=== PATIENT | female | born 1960 | race Caucasian/White ===

== ENCOUNTER → 2017-07-26 18:36 | Outpatient (CLI) | payer OTHER, SELFPAY | PROVIDERS: Visit Provider Physician Assistant | DX: J02.9 Acute pharyngitis, unspecified (principal) | CPT/HCPCS: 87081 ==

== ENCOUNTER → 2017-09-01 10:14 | Outpatient (CLI) | payer OTHER, SELFPAY ==
[2017-09-01 10:46] LABS: Absolute Neutrophil Count 3.8 X10^3/uL (2.0-7.7); Basophil# 0.07 X10^3/uL; Basophil% 1.3 % (0-1); Eosinophils% 1.8 % (0-5); Hematocrit 43.4 % (37-47); Hemoglobin 14.1 g/dl (12.0-15.0); Lymphocyte % 20.3 % (19-41); Mean Corp Hgb Conc 32.5 g/gl (32-36); Mean Corpuscular Hgb 30.2 pg (27.0-32.0); Mean Corpuscular Volume 92.9 fL (81-99); Mean Platelet Vol. 9.4 fl (6.2-12.0); Monocyte# 0.33 X10^3/uL; Monocyte% 6.1 % (0-10); Neutrophil # 3.79 X10^3/uL (2.7-7.7); Neutrophil % 70.1 % (47-70); Platelet Count 242 K/mm3 (150-450); RBC Distribution Width CV 13.7 % (11.6-14.6); RBC Distribution Width SD 45.3 fl (35.1-43.9); Red Blood Count 4.67 M/mm3 (4.2-5.4); White Blood Count 5.4 K/mm3 (4.4-11.0)
[2017-09-01 10:48] LABS: POSITIVE COUNT NO; POSITIVE DIFFERENTIAL NO; POSITIVE MORPHOLOGY NO
[2017-09-01 11:29] LABS: ALB/GLOB Ratio 1.1 RATIO (0.9-2.4); AST(SGOT) 17 U/L (15-37); Alanine Aminotransfer ALT/SGPT 26 U/L (13-56); Albumin, Serum 3.6 g/dL (3.2-5.0); Alkaline Phosphatase 79 U/L (45-117); Anion Gap 8 (5-15); BUN 13 mg/dL (7-18); BUN/Creat Ratio 17.8 RATIO (10-20); Calcium,Total 8.9 mg/dL (8.5-10.1); Chloride 104 mmol/L (98-107); Creatinine, Serum 0.73 mg/dL (0.55-1.02); EST Glomerular Filtration Rate 87 mL/min (>60); Est Glom Filt Rate - Afr Amer 105 mL/min (>60); Globulin 3.3 g/dL (2.2-4.2); Glucose 80 mg/dL (74-106); Protein, Total 6.9 g/dL (6.4-8.2); Sodium Level 142 mmol/L (136-145); Thyroid Stim Hormone (TSH) 3.36 uIU/mL (0.358-3.74)
== END ==
PROVIDERS: Visit Provider Family Medicine Geriatric Medicine
DX: E03.9 Hypothyroidism, unspecified (principal); R53.83 Other fatigue
CPT/HCPCS: 36415; 80053; 84443; 85025

== ENCOUNTER → 2019-03-14 | Outpatient (CLI) | payer OTHER, SELFPAY ==
[2017-07-26 06:57] VITALS: BMI 35.2
[2019-03-14 17:36] LABS: Absolute Lymphocyte Count 1.39 X10^3/uL (0.83-4.51); Absolute Neutrophil Count 3.4 X10^3/uL (2.0-7.7); Basophil# 0.09 X10^3/uL; Basophil% 1.7 % (0-1); Eosinophils% 1.9 % (0-5); Hematocrit 44.9 % (37-47); Hemoglobin 14.4 g/dL (12.0-15.0); Lymphocyte # 1.39 X10^3/ul (4.0); Mean Corp Hgb Conc 32.1 g/dL (32-36); Mean Corpuscular Hgb 29.3 pg (27.0-32.0); Mean Corpuscular Volume 91.3 fL (81-99); Mean Platelet Vol. 10.1 fl (6.2-12.0); Monocyte# 0.37 X10^3/uL; Monocyte% 6.9 % (0-10); NRBC Flagged by Analyzer 0 % (0-5); Neutrophil # 3.38 X10^3/uL (2.7-7.7); Neutrophil % 63.1 % (47-70); Platelet Count 211 K/mm3 (150-450); RBC Distribution Width CV 13.1 % (11.6-14.6); Red Blood Count 4.92 M/mm3 (4.2-5.4); White Blood Count 5.4 K/mm3 (4.4-11.0)
[2019-03-14 17:56] LABS: ALB/GLOB Ratio 1.2 RATIO (0.9-2.4); AST(SGOT) 33 U/L (15-37); Alanine Aminotransfer ALT/SGPT 58 U/L (13-56); Albumin, Serum 3.9 g/dL (3.2-5.0); Alkaline Phosphatase 71 U/L (45-117); Anion Gap 6 (5-15); BUN 18 mg/dL (7-18); BUN/Creat Ratio 25.2 RATIO (10-20); Calcium,Total 9.6 mg/dL (8.5-10.1); Chloride 106 mmol/L (98-107); Creatinine, Serum 0.71 mg/dL (0.55-1.02); EST Glomerular Filtration Rate 89 mL/min (>60); Est Glom Filt Rate - Afr Amer 107 mL/min (>60); Globulin 3.2 g/dL (2.2-4.2); Glucose 87 mg/dL (74-106); Potassium 3.9 mmol/L (3.5-5.1); Protein, Total 7.1 g/dL (6.4-8.2); Sodium Level 143 mmol/L (136-145); Thyroid Stim Hormone (TSH) 3.52 uIU/mL (0.358-3.74); Vitamin D,25 Hydroxy 24.4 ng/mL (29.95-100.01)
== END | disposition home or self-care (01) ==
LOC: POLAB3 11:18
PROVIDERS: Visit Provider Family Medicine Geriatric Medicine
DX: E55.9 Vitamin D deficiency, unspecified (principal); R53.83 Other fatigue
CPT/HCPCS: 36415; 80053; 82306; 84443; 85025

== ENCOUNTER → 2020-10-20 14:48 | Outpatient (CLI) | payer OTHER, SELFPAY ==
[2017-07-26 06:57] VITALS: BMI 35.2
[2020-10-20 15:22] LABS: Absolute Lymphocyte Count 1.18 X10^3/uL (0.83-4.51); Absolute Neutrophil Count 3.6 X10^3/uL (2.0-7.7); Basophil# 0.07 X10^3/uL; Basophil% 1.3 % (0-1); Eosinophil# 0.16 X10^3/uL; Hematocrit 46.2 % (37-47); Hemoglobin 14.1 g/dL (12.0-15.0); Lymphocyte # 1.18 X10^3/ul (0.83-4.51); Lymphocyte % 22.1 % (19-41); Mean Corp Hgb Conc 30.5 g/dL (32-36); Mean Corpuscular Volume 91.8 fL (81-99); Mean Platelet Vol. 9.9 fl (6.2-12.0); Monocyte# 0.35 X10^3/uL; Monocyte% 6.6 % (0-10); NRBC Flagged by Analyzer 0 % (0-5); Neutrophil # 3.57 X10^3/uL (2.7-7.7); Neutrophil % 66.8 % (47-70); Platelet Count 234 K/mm3 (150-450); RBC Distribution Width CV 13.5 % (11.6-14.6); RBC Distribution Width SD 45.5 fl (35.1-43.9); Red Blood Count 5.03 M/mm3 (4.2-5.4); White Blood Count 5.3 K/mm3 (4.4-11.0)
[2020-10-20 15:44] LABS: Vitamin D,25 Hydroxy 15.4 ng/mL
[2020-10-20 15:50] LABS: ALB/GLOB Ratio 1.2 RATIO (0.9-2.4); AST(SGOT) 20 U/L (15-37); Alanine Aminotransfer ALT/SGPT 38 U/L (13-56); Albumin, Serum 3.9 g/dL (3.2-5.0); Alkaline Phosphatase 71 U/L (45-117); Anion Gap 2 (5-15); BUN 13 mg/dL (7-18); BUN/Creat Ratio 17.8 RATIO (10-20); Calcium,Total 9.4 mg/dL (8.5-10.1); Chloride 108 mmol/L (98-107); Creatinine, Serum 0.73 mg/dL (0.55-1.02); EST Glomerular Filtration Rate 86 mL/min (>60); Est Glom Filt Rate - Afr Amer 104 mL/min (>60); Globulin 3.3 g/dL (2.2-4.2); Glucose 83 mg/dL (74-106); Potassium 3.8 mmol/L (3.5-5.1); Protein, Total 7.2 g/dL (6.4-8.2); Sodium Level 142 mmol/L (136-145); Thyroid Stim Hormone (TSH) 5.26 uIU/mL (0.358-3.74)
== END ==
PROVIDERS: Visit Provider Family Medicine Geriatric Medicine
DX: E55.9 Vitamin D deficiency, unspecified (principal); R53.83 Other fatigue
CPT/HCPCS: 36415; 80053; 82306; 84443; 85025

== ENCOUNTER → 2020-10-26 08:14 | Outpatient (CLI) | payer OTHER, SELFPAY ==
[2017-07-26 06:57] VITALS: BMI 35.2
--- NOTE | 2020-10-26 08:19 | US_ITS ---
STUDY: ABDOMINAL ULTRASOUND - RIGHT UPPER QUADRANT REASON FOR VISIT: Female, 60 years old ABD PAIN . Right upper quadrant pain. TECHNIQUE: Ultrasound evaluation of the right upper quadrant was performed with real-time and static chaudhry-scale imaging. TECHNICAL QUALITY: Adequate. COMPARISON: None. FINDINGS: Liver: The liver measures 14.3 cm. There is normal echogenicity of the liver. The bile ducts are within normal limits. There is hepatic color flow. The direction of portal flow is hepatopetal. There is no demonstrated mass lesion. Gallbladder: Normal distended gallbladder. The gallbladder wall measures 3 mm. There is a negative sonographic Krause''s sign. There is no pericholecystic fluid. There are multiple echogenic structures within the gallbladder, consistent with multiple small gallstones. Common Bile Duct (C.B.D.): The common bile duct measures 5 mm. Pancreas: Normal size of the head, body and tail of the pancreas. There is normal echogenicity of the pancreas. There is no demonstrated pancreatic mass or cyst. Right Kidney: Normal size of the right kidney. The right kidney measures 10.3 cm x 5.1 cm x 4.7 cm. Normal renal cortex. The right cortex measures cm. There is no demonstrated renal mass or cyst. There is no right hydronephrosis. US/Abdomen Limited IMPRESSION: Multiple small gallstones. Electronically Signed: Luis Sands MD at 11:05 EDT , Service support ,
== END ==
PROVIDERS: PCP Family Medicine Geriatric Medicine; Referring Provider Family Medicine Geriatric Medicine; Visit Provider Family Medicine Geriatric Medicine
DX: R10.9 Unspecified abdominal pain (principal)
CPT/HCPCS: 76705

== ENCOUNTER → 2020-11-13 12:41 | Outpatient (CLI) | payer OTHER, SELFPAY ==
[2017-07-26 06:57] VITALS: BMI 35.2
--- NOTE | 2020-11-13 12:42 | BI_ITS ---
MAMMOGRAPHY - BILATERAL SCREENING 3-D TOMOSYNTHESIS REASON FOR EXAM: Female, 60 years old. Routine screening PERTINENT HISTORY: Aunt and cousins with breast cancer.. TECHNIQUE: 2-D mammograms and 3-D Tomosynthesis of the breast (s) were performed. CAD was performed. COMPARISON: 2019 FINDINGS: The breast composition is composed of scattered fibroglandular density. Scattered benign calcifications are seen. No dense spiculated masses or suspicious microcalcifications are identified. No architectural distortion is identified. There is no skin thickening or retraction. There has been no significant change since the prior study. BI/SCRN MAMM (CAD)W/PAULETTE BILAT IMPRESSION: No mammographic signs of malignancy. Routine yearly mammograms recommended. ASSESSMENT CATEGORY: BIRADS Category 1: Negative. A letter regarding these results will be sent to the patient by the facility within 30 days. FOLLOW UP RECOMMENDATION: Yearly follow up mammogram recommended. (A) Approximately 10% of breast cancers are not detected by mammography. A normal mammogram should not delay biopsy of a clinically suspicious abnormality. Electronically Signed: Chemo Tavera MD at 13:29 EDT , Service support ,
== END ==
PROVIDERS: PCP Family Medicine Geriatric Medicine; Referring Provider Family Medicine Geriatric Medicine; Visit Provider Family Medicine Geriatric Medicine
DX: Z12.31 Encounter for screening mammogram for malignant neoplasm of breast (principal)
CPT/HCPCS: 77063; 77067

== ENCOUNTER → 2020-12-09 11:10 | Outpatient (CLI) | payer OTHER, SELFPAY ==
[2017-07-26 06:57] VITALS: BMI 35.2
== END ==
PROVIDERS: PCP Family Medicine Geriatric Medicine; Visit Provider Family Medicine Geriatric Medicine
DX: E03.9 Hypothyroidism, unspecified (principal)
CPT/HCPCS: 36415; 84443

== ENCOUNTER → 2021-03-17 10:19 | Outpatient (CLI) | payer OTHER, SELFPAY ==
[2021-03-17 12:24] LABS: Cholesterol 246 mg/dL (200); High Density Lipoprotein 67 mg/dL; Triglycerides 111 mg/dL; Very Low Density Lipoprotein 22 mg/dL (5-40)
== END ==
PROVIDERS: PCP Internal Medicine; Referring Provider Internal Medicine; Visit Provider Internal Medicine
DX: E03.9 Hypothyroidism, unspecified (principal)
CPT/HCPCS: 36415; 80061

== ENCOUNTER → 2021-04-27 10:51 | Outpatient (CLI) | payer OTHER, SELFPAY ==
--- NOTE | 2021-04-27 10:58 | BD_ITS ---
STUDY: DUAL ENERGY X-RAY ABSORPTIOMETRY / DXA REASON FOR EXAM: Female, 61 years old. Post menopausal TECHNIQUE: Bone Mineral Density (BMD) measurements of lumbar spine and bilateral hips were obtained. COMPARISON: None. FINDINGS: Lumbar Spine (L1-L4): g/cm2 (0.803) / T-score (-2.2) / Z-score (-0.7) Findings are suggestive of osteopenia with a high fracture risk. Left Femur Total: g/cm2 (0.900) / T-score (-0.3) / Z-score (0.7) Left Femoral Neck: g/cm2 (0.687) / T-score (-1.5) / Z-score (-0.1) Right Femur Total: g/cm2 (0.868) / T-score (-0.6) / Z-score (0.5) Right Femoral Neck: g/cm2 (0.675) / T-score (-1.6) / Z-score (-0.2) BD/Dexa Bone Density Study IMPRESSION: The patient is considered osteopenic as outlined below according to World Felipe Organization (WHO) criteria with a high fracture risk. Reference Information: The T-score is the number of standard deviations above or below the standard which is normal for young adults at their peak bone mineral density. The World Health Organization (WHO) interprets the T-scores as follows: Above -1 Normal bone density Between -1 and -2.5 Osteopenia Equal to / or below -2.5 Osteoporosis As a practical clinical guideline, osteopenia may be graded as follows: Mild -1 through -1.5 Moderate -1.6 through -2.0 Severe -2.1 through -2.4 The Z-score is the number of standard deviations above or below age-matched controls. A Z-score of less than -1.5 would be considered abnormal. References: 1. NIH Osteoporosis and Related Bone Diseases www osteo.org 2. International Society for Clinical Densitometry www iscd.org 3. National Osteoporosis Foundation www nof.org Electronically Signed: Luis Sands MD at 15:45 EDT , Service support ,
== END ==
PROVIDERS: PCP Internal Medicine; Referring Provider Internal Medicine; Visit Provider Internal Medicine
DX: Z78.0 Asymptomatic menopausal state (principal)
CPT/HCPCS: 77080

== ENCOUNTER → 2021-05-27 15:40 | Outpatient (CLI) | payer OTHER, SELFPAY ==
[2021-05-27 17:15] LABS: Anion Gap 6 (5-15); BUN 15 mg/dL (7-18); BUN/Creat Ratio 19.7 RATIO (10-20); Calcium,Total 9.6 mg/dL (8.5-10.1); Chloride 106 mmol/L (98-107); Creatinine, Serum 0.76 mg/dL (0.55-1.02); EST Glomerular Filtration Rate 82 mL/min (>60); Est Glom Filt Rate - Afr Amer 99 mL/min (>60); Glucose 91 mg/dL (74-106); Potassium 4.5 mmol/L (3.5-5.1); Sodium Level 141 mmol/L (136-145); Thyroid Stim Hormone (TSH) 2.79 uIU/mL (0.358-3.74)
== END ==
PROVIDERS: PCP Internal Medicine; Referring Provider Internal Medicine; Visit Provider Internal Medicine
DX: E03.9 Hypothyroidism, unspecified (principal); E55.9 Vitamin D deficiency, unspecified
CPT/HCPCS: 36415; 80048; 82306; 84443

== ENCOUNTER 2021-12-27 07:50 | Emergency (ER) | payer OTHER, SELFPAY ==
[2021-12-27 07:51] VITALS: BP 152/92; PULSE 80; RESP 16; TEMP 36.6; O2SAT 99; BMI 34.9
--- NOTE | 2021-12-27 07:56 | EX.ED.UPPERE ---
HPI History of Present Illness Chief Complaint: Disclocation Narrative Narrative: 61-year-old female presenting with left ring finger pain. She states she tripped while watering [place] and dislocated her left ring finger. She was able to relocate it. She took off her ring finger. She states it is minimally painful. She has some swelling over the PIP of the finger. She is able to range the finger. No numbness or tingling. She is concerned she might have a finger fracture. PFSH PFSH Medical History Arthritis Bright disease Kali-Danlos syndrome, familial joint laxity type Health care maintenance History of migraine headaches Hypothyroidism Migraine Osteoarthritis Osteopenia with high risk of fracture Post-menopausal Vitamin D deficiency Home Medications sumatriptan succinate 25 mg tablet 50 mg PO ONCE PRN Migraine Headache 03/17/21 [History Last Taken Unknown] alendronate 35 mg tablet 35 mg PO QWEEK #14 tabs 05/27/21 [Rx Last Taken Unknown] levothyroxine 25 mcg tablet 25 mcg PO DAILY #90 tabs 10/25/21 [Rx Last Taken Unknown] Allergy/AdvReac Type Severity Reaction Status Date / Time acetaminophen [From Fioricet] Allergy Unknown Verified 12/27/21 07:54 butalbital [From Fioricet] Allergy Unknown Verified 12/27/21 07:54 caffeine [From Fioricet] Allergy Unknown Verified 12/27/21 07:54 Sulfa (Sulfonamide Allergy Unknown Verified 12/27/21 07:54 Antibiotics) Family History Uncle Alcoholism Parkinson disease Alzheimer disease Grandmother Angina pectoris Diabetes Myocardial infarction Alzheimer disease Father Asthma Arthritis Skin cancer Mother Arthritis Thyroid disorder Kali-Danlos syndrome Aunt Breast cancer Sister Kali-Danlos syndrome Other Bladder cancer Colon cancer Heart disease Hypertension Ovarian cancer Surgical History History of tonsillectomy Hx of hysterectomy Social History Smoking Status: Never smoker alcohol intake: never substance use type: does not use what type of physical activity do you participate in: walking frequency: 3-4 times per week ROS ROS ED Constitutional Constitutional ED: Denies chills or fever(s) Eyes Eyes: Denies change in vision or diplopia ENT ENT ED: Denies rhinorrhea or sore throat Cardiovascular Cardiovascular: Denies chest pain or palpitations Respiratory/Chest Respiratory/Chest: Denies cough or dyspnea Gastrointestinal Gastrointestinal: Denies abdominal pain or constipation Genitourinary Genitourinary ED: Denies dysuria or hematuria Musculoskeletal Musculoskeletal: Reports other Details: Left ring finger pain ; Denies back pain Integumentary Denies abscess or Abrasions Neurologic Neurologic: Denies headache(s) Psychiatric Psychiatric: Denies anxiety or depression EXAM Physical Exam Const Vital Signs: 12/27/21 07:51 Temperature 97.9 F Temperature Source Temporal Pulse Rate 80 Respiratory Rate 16 Blood Pressure 152/92 H Blood Pressure Mean 112 Pulse Ox 99 Oxygen Delivery Method Room Air Positive well nourished General Appearance ED: NAD HEENT Reports moist mucous membranes Eyes PERRL and EOMs intact bilaterally Resp normal respiratory effort Cardio regular rate and regular rhythm Extremity Extremity Narrative: There is swelling over the PIP of the left ring finger. Patient able to flex and extend this. She has minimal pain. No other pain throughout the left hand. Left hand neurovascular intact with cap refill to all 5 fingers. Neuro oriented x3 and CN's II-XII intact bilaterally Sensorium / Orientation: alert Psych mental status grossly normal MDM MDM MDM Narrative Medical decision making narrative: I obtained a hand x-ray of the left hand and there appears to be no fracture on my interpretation. There is soft tissue swelling around the PIP where the patient previous dislocated. The radiologist does agree. Patient placed in AlumaFoam splint for comfort. She does not require anything for pain because she states is minimally painful. Patient discharged home in stable condition. Impression: 1. Mechanical fall 2. Left ring finger dislocation Lab Data Attestation: I reviewed the patient's lab results. Discharge Plan Triage Chief Complaint: Disclocation ED Provider: Piotr Cruz Dx/Rx/DC Orders Instructions: ED Finger Dislocation Prescriptions: No Action sumatriptan succinate 25 mg tablet 50 mg PO ONCE PRN (Reason: Migraine Headache) alendronate 35 mg tablet 35 mg PO QWEEK Qty: 14 1RF levothyroxine 25 mcg tablet 25 mcg PO DAILY Qty: 90 1RF Primary Care Provider: Hayder Villalta Referrals: Hayder Villalta MD [Primary Care Provider] - Disposition Disposition: Home, Self Care
--- NOTE | 2021-12-27 08:04 | RAD_ITS ---
STUDY: X-RAY - LEFT HAND REASON FOR EXAM: Female, 61 years old. TRIPPED AND DISLOCATED 4TH DIGIT THIS A.M. PATIENT REDUCED FINGER. NOW SWELLING TO PROXIMAL 4TH DIGIT TECHNIQUE: 3 view(s) of the hand. COMPARISON: None. FINDINGS: Normal radiocarpal articulation. Normal distal radioulnar joint. Normal visualized carpal bones. Normal carpal articulations Normal carpometacarpal articulation of the thumb. Normal second through fifth carpometacarpal joints. Normal metacarpi. Normal metacarpophalangeal joint of the thumb. Normal interphalangeal joint of the thumb. Normal proximal and distal phalanges of the thumb. Normal metacarpophalangeal joints of the second through fifth fingers. Normal proximal and distal interphalangeal joints of the second through fifth fingers. Normal phalanges of the second through fifth fingers. No visualized fracture or displaced bony fragment. Small corticated ossicle at the base of the distal phalanx of the thumb noted which could be developmental or sequela of old trauma. There is mild bulbous soft tissue swelling around the proximal phalanx of the fourth finger. RAD/Hand Min 3 Views IMPRESSION: 1. Mild soft tissue swelling around the proximal phalanges of the fourth finger. Electronically Signed: Ignacio Hutchins MD at 8:25 EDT Reading Location ID and State: [address] [place] [address] , Service support ,
== END 2021-12-27 09:07 | disposition home or self-care (01) ==
PROVIDERS: Emergency Provider Student in an Organized Health Care Education/Training Program; PCP Internal Medicine; Visit Provider Student in an Organized Health Care Education/Training Program
DX: S63.255A Unspecified dislocation of left ring finger, initial encounter (principal); E03.9 Hypothyroidism, unspecified; Z79.899 Other long term (current) drug therapy; X58.XXXA Exposure to other specified factors, initial encounter
CPT/HCPCS: 73130; 99283

== ENCOUNTER → 2022-04-18 | Outpatient (CLI) | payer OTHER, SELFPAY ==
[2022-04-18 12:25] LABS: Absolute Lymphocyte Count 1.21 X10^3/uL (0.83-4.51); Absolute Neutrophil Count 3.5 X10^3/uL (2.0-7.7); Basophil# 0.07 X10^3/uL; Basophil% 1.3 % (0-1); Eosinophil# 0.14 X10^3/uL; Eosinophils% 2.7 % (0-5); Hematocrit 44.3 % (37-47); Lymphocyte # 1.21 X10^3/ul (0.83-4.51); Lymphocyte % 22.9 % (19-41); Mean Corp Hgb Conc 31.6 g/dL (32-36); Mean Corpuscular Hgb 28.9 pg (27.0-32.0); Mean Corpuscular Volume 91.5 fL (81-99); Mean Platelet Vol. 10.2 fl (6.2-12.0); Monocyte# 0.36 X10^3/uL; Monocyte% 6.8 % (0-10); NRBC Flagged by Analyzer 0 % (0-5); Neutrophil # 3.46 X10^3/uL (2.7-7.7); Neutrophil % 65.5 % (47-70); Platelet Count 214 K/mm3 (150-450); RBC Distribution Width CV 13.2 % (11.6-14.6); RBC Distribution Width SD 44.7 fl (35.1-43.9); Red Blood Count 4.84 M/mm3 (4.2-5.4); White Blood Count 5.3 K/mm3 (4.4-11.0)
[2022-04-18 12:39] LABS: Vitamin D,25 Hydroxy 43.4 ng/mL
[2022-04-18 13:36] LABS: ALB/GLOB Ratio 1.2 RATIO (0.9-2.4); AST(SGOT) 21 U/L (15-37); Alanine Aminotransfer ALT/SGPT 27 U/L (13-56); Albumin, Serum 3.8 g/dL (3.2-5.0); Alkaline Phosphatase 61 U/L (45-117); Anion Gap 6 (5-15); BUN 13 mg/dL (7-18); BUN/Creat Ratio 16.5 RATIO (10-20); Calcium,Total 9.3 mg/dL (8.5-10.1); Chloride 106 mmol/L (98-107); Cholesterol 231 mg/dL (200); Creatinine, Serum 0.79 mg/dL (0.55-1.02); EST Glomerular Filtration Rate 78 mL/min (>60); Est Glom Filt Rate - Afr Amer 95 mL/min (>60); Globulin 3.2 g/dL (2.2-4.2); Glucose 92 mg/dL (74-106); High Density Lipoprotein 67 mg/dL; Potassium 3.9 mmol/L (3.5-5.1); Sodium Level 141 mmol/L (136-145); Thyroid Stim Hormone (TSH) 3.05 uIU/mL (0.358-3.74); Triglycerides 143 mg/dL; Very Low Density Lipoprotein 29 mg/dL (5-40)
== END | disposition home or self-care (01) ==
LOC: BIMLAB 10:33
PROVIDERS: PCP Internal Medicine; Referring Provider Internal Medicine; Visit Provider Internal Medicine
DX: E78.5 Hyperlipidemia, unspecified (principal); E03.9 Hypothyroidism, unspecified; E55.9 Vitamin D deficiency, unspecified
CPT/HCPCS: 36415; 80053; 80061; 82306; 84443; 85025

== ENCOUNTER → 2022-05-12 | Outpatient (CLI) | payer OTHER, SELFPAY ==
--- NOTE | 2022-05-12 09:26 | BI_ITS ---
MAMMOGRAPHY - BILATERAL SCREENING REASON FOR EXAM: Female, 62 years old. Routine annual screening examination. PERTINENT HISTORY: Aunt with breast cancer. TECHNIQUE: Digital bilateral breast apulette (3D mammographic acquisition) in the CC and MLO projections. 2-D mediolateral oblique (MLO) and craniocaudad (CC) views of both breasts were obtained. CAD: Full Field Digital Mammography with Computer Added Detection was performed. COMPARISON: Comparison is made with prior study of 11/13/2020. FINDINGS: Breast Composition: There are scattered areas of fibroglandular density. There are no dominant masses or suspicious calcifications. Stable small benign-appearing bilateral axillary lymph nodes. No other significant abnormalities are identified. There has been no significant change since the prior study. BI/SCRN MAMM (CAD)W/PAULETTE BILAT IMPRESSION: Stable bilateral screening mammogram. Yearly follow-up mammogram recommended. (A) ASSESSMENT CATEGORY: BIRADS Category 2: Benign. A letter regarding these results will be sent to the patient by the facility within 30 days. Approximately 10% of breast cancers are not detected by mammography. A normal mammogram should not delay biopsy of a clinically suspicious abnormality. [id number] Electronically Signed: Luis Sands MD at 10:28 EST ,
== END | disposition home or self-care (01) ==
LOC: OPBI 09:24
PROVIDERS: PCP Internal Medicine; Referring Provider Internal Medicine; Visit Provider Internal Medicine
DX: Z12.31 Encounter for screening mammogram for malignant neoplasm of breast (principal); Z80.3 Family history of malignant neoplasm of breast
CPT/HCPCS: 77063; 77067

== ENCOUNTER → 2023-06-30 | Outpatient (CLI) | payer OTHER, SELFPAY ==
--- OUTSIDE RECORDS SUMMARY | 2023-06-30 12:48 | XMS RPT_ITS | CCD ---
Author Name Unknown Address [address] [place] [address] Organization [facility] Results Test Name Value Interpretation Reference Range Facil ity Progress note 05-14-2021 Note Date & Type Note Facility 05-14-2021 Note HNO ID: [id number] Author: Marie Gonzalez PA-C Service: ? Author Type: Physician Fringing Machine Operator Type: Progress Notes Filed: 05/17/2021 8:36 PM Note Text: In lieu of an in-person visit due to COVID-19 concerns, a virtual visit was performed on the patient. Patient is aware that I am not fully able to assess symptoms and do a full physical examination including vital signs assessment at this time. FOLLOW UP VISIT - ENDOSCOPY NAME: J Carlos Jenkins CLINIC NO.: [id number] DATE OF SERVICE: 05/14/2021 : 1960 REFERRING PHYSICIAN: Hayder Villalta MD J Carlos is a patient I am following for screening colonoscopy and personal history of colon polyps. Dr. Mendenhall performed lower endoscopy on 05/03/21 at [facility]. The patient was found to have: Impression: ?- One diminutive polyp in the proximal transverse ?colon, removed with a cold biopsy forceps. Resected ?and retrieved. ?- Diverticulosis in the sigmoid colon. ?- The examination was otherwise normal on direct and ?retroflexion views. Pathology demonstrated: FINAL DIAGNOSIS Colon, proximal transverse, polyp, biopsy: Tubular adenoma. KM/HG ? 05/04/21 The patient notes no complaints since the procedure. Assessment IMPRESSION: s/p colonoscopy with polypectomy-tubular adenoma PLAN: The operative findings and pathology report were reviewed with the patient, and the patient has had the opportunity to ask questions and have questions answered. If the patient notes any problems or changes in bowel function, the patient should contact me immediately. Otherwise I recommend follow up endoscopy in 5 years. HM updated and recall letter generated. Patient verbalized understanding of all above and agreed with the plan Diagnoses: (D36.9) Tubular adenoma (primary encounter diagnosis) I spent a total of 20 minutes on the date of the service which included preparing to see the patient, completing clinical documentation, obtaining and/or reviewing separately obtained history, communicating with other HCPs (not separately reported), independently interpreting results (not separately reported) and communicating results to the patient/family/caregiver. Marie Gonzalez PA-C [facility] Progress note 03-03-2021 Note Date & Type Note Facility 03-03-2021 Note HNO ID: [id number] Author: Marie Gonzalez PA-C Service: ? Author Type: Physician Fringing Machine Operator Type: Progress Notes Filed: 03/03/2021 11:50 AM Note Text: HISTORY AND PHYSICAL J Carlos Jenkins 1960 REFERRING PHYSICIAN: Hemanth Goetz* CHIEF COMPLAINT: Consult (Colonoscopy) HPI: The patient is a 61 year old female referred for endoscopy. J Carlos notes no colon complaints. Patient denies any change in bowel habits, weight changes, blood in stools, black tarry stools or abdominal pain. Denies family history of colon cancer in a first-degree relative. The patient notes no upper GI complaints. J Carlos has undergone prior endoscopy. Most recent colonoscopy performed by Dr. Jimenez 04/21/16 under [facility] with no concerning findings. 5 year repeat was recommended based on prior history of multiple adenomatous colon polyps in 2011. Patient denies chest pain, shortness of breath or recent hospitalizations. Denies problems with sedation in the past. PAST MEDICAL HISTORY Diagnosis Date - Benign neoplasm of colon 5 Polyps - BRCA negative negative [facility] 01/2016 - Dysplasia of cervix, unspecified - Migraines - PMH - PAST MEDICAL HISTORY OF Bright's disease(kidney problem) PAST SURGICAL HISTORY Procedure Laterality Date - COLONOSCOP W/ OR W/O [facility] SPE[facility] 03/26/2012 Colonoscopy - COLONOSCOP W/ OR W/O [facility] 04/21/16 Colonoscopy (MAC) - PAST SURGICAL HISTORY OF 1995 Hysterectomy,partial - due to stage 4 dysplasia - REMOVAL OF TONSILS,<12 Y/O Tonsillectomy - SIGMOIDOSCOPY FLEX DIAG 02/08/13 Sigmoidoscopy, flexible repeat colon in 3 years with MAC Current Outpatient Medications Medication Sig - levothyroxine (SYNTHROID) 25 mcg tablet TAKE 1 TABLET ORALLY ONCE PER DAY FOR 90 DAYS - triamcinolone (KENALOG) 0.025 % cream Apply 1 application to affected area twice daily. - SUMAtriptan (IMITREX) 50 mg tablet Take 1 tablet by mouth as needed for Migraine Headache (see administration instructions). MAY REPEAT DOSE AFTER 2 HOURS. No current facility-administered medications for this visit. ALLERGIES: Fioricet-Codeine [Tscnpymnlf-Pukebniigy-Gtp-Cod] and Sulfa (Sulfonamide Antibiotics) PERSONAL HISTORY: Social History Tobacco Use - Smoking status: Never Smoker - Smokeless tobacco: Never Used Vaping Use - Vaping Use: Never used Substance Use Topics - Alcohol use: No - Drug use: No FAMILY HISTORY: FAMILY HISTORY Problem Relation Age of Onset - Thyroid Mother - Arthritis Mother osteo - Alzheimer's Disease Mother - Heart Mother - other (Elhers-Danlos Snydrome) Mother - Hypertension Father - Heart Maternal Grandmother - Diabetes Maternal Grandmother ADULT ONSET - Arthritis Maternal Grandmother - Cancer Paternal Grandfather Bladder cancer - Breast Cancer Maternal Aunt - Breast Cancer Maternal Aunt dx 50 - Colon Cancer Other Maternal Cousin dx 52 - Ovarian cancer Other Maternal Cousin dx 49 - other (Melenoma) Other Maternal Cousin - other (Pancreatic Cancer) Other Maternal Cousin dx 55 - Multiple Sclerosis Other 3 Maternal Cousins - Breast Cancer Maternal Uncle dx 40's REVIEW OF SYMPTOMS: The review of systems data was entered by the nurse and reviewed by me Nursing Notes: Trena Armas LPN 03/03/2021 9:47 AM Signed REVIEW OF SYSTEMS: General: The patient denies fatigue, denies weight loss, denies weight gain, denies feeling hot, and denies feelings of cold. Eyes: The patient denies glaucoma, denies eye injury/surgery, wears glasses or contacts. Ear/Nose/Throat: The patient denies allergies, denies hayfever, denies ear infections, and denies bloody noses. Cardiovascular: The patient denies chest pain, denies heart disease, denies high blood pressure,denies cardiac stent, denies prior heart attack, denies irregular heart beat, denies high cholesterol, denies poor circulation, denies heart failure, other cardiac issues, denies claudication, denies cold feet, denies peripheral arterial stent. Respiratory: The patient denies tuberculosis, denies pneumonia, denies frequent cough, denies pulmonary embolism, denies shortness of breath, and denies coughing up blood. Gastrointestinal: The patient denies difficulty swallowing, denies acid reflux, denies ulcers, denies vomiting, denies jaundice/hepatitis, denies gallbladder problems, denies black or tarry stools, NOTES hemorrhoids, NOTES bleeding from rectum, denies diverticulitis, denies constipation, denies diarrhea, denies loss of stool control, and denies hernias. Kidney/Bladder: The patient denies kidney stones, denies urine infections, and denies bloody urine. Skin: The patient denies a history of skin cancer, denies bleeding/changing moles, and denies a history of skin rash. Neurologic: The patient denies a history of epilepsy/convulsions, NOTES headaches, denies head/spinal injuries, and denies stroke/TIA. Psychiatric: The (more content not included)... [facility] Progress note 01-13-2021 Note Date & Type Note Facility 01-13-2021 Note HNO ID: [id number] Author: Tanya Katz MD Service: ? Author Type: Physician Type: Progress Notes Filed: 01/13/2021 1:48 PM Note Text: Uma is a 60 year old who presents for an annual gynecologic exam without complaints. Went to [place] for one week recently with family. Intermittent RLQ pain- no associated symptoms. Postmenopausal: Yes since age HRT use: No. Last Pap: 09/17/2015 normal HPV: 02/27/2008 negative History of abnormal pap: Yes 1995 Last mammogram: 2020 normal [facility] History of abnormal mammogram: No Sexually active: Yes History of STDS: None Patient concerns for STD exposure: No. Pain with intercourse: No Postcoital bleeding: No Hot flashes: No Night sweats: Yes Vaginal dryness: No Exercise: routine Diet: balanced OB History T0 L2 SAB1 TAB0 Ectopic0 Multiple0 Live Births0 PAST MEDICAL HISTORY Diagnosis Date - Benign neoplasm of colon 5 Polyps - BRCA negative negative [place] 01/2016 - Dysplasia of cervix, unspecified - Migraines - PMH - PAST MEDICAL HISTORY OF Bright's disease(kidney problem) PAST SURGICAL HISTORY Procedure Laterality Date - COLONOSCOP W/ OR W/O [facility] 03/26/2012 Colonoscopy - COLONOSCOP W/ OR W/O [facility] 04/21/16 Colonoscopy (MAC) - PAST SURGICAL HISTORY OF 1995 Hysterectomy,partial - due to stage 4 dysplasia - REMOVAL OF TONSILS,<12 Y/O Tonsillectomy - SIGMOIDOSCOPY FLEX DIAG 02/08/13 Sigmoidoscopy, flexible repeat colon in 3 years with MAC FAMILY HISTORY Problem Relation Age of Onset - Thyroid Mother - Arthritis Mother osteo - Alzheimer's Disease Mother - Heart Mother - other (Elhers-Danlos Snydrome) Mother - Hypertension Father - Heart Maternal Grandmother - Diabetes Maternal Grandmother ADULT ONSET - Arthritis Maternal Grandmother - Cancer Paternal Grandfather Bladder cancer - Breast Cancer Maternal Aunt - Breast Cancer Maternal Aunt dx 50 - Colon Cancer Other Maternal Cousin dx 52 - Ovarian cancer Other Maternal Cousin dx 49 - other (Melenoma) Other Maternal Cousin - other (Pancreatic Cancer) Other Maternal Cousin dx 55 - Multiple Sclerosis Other 3 Maternal Cousins - Breast Cancer Maternal Uncle dx 40's SOCIAL HISTORY Social History Tobacco Use - Smoking status: Never Smoker - Smokeless tobacco: Never Used Vaping Use - Vaping Use: Never used Substance Use Topics - Alcohol use: No - Drug use: No REVIEW OF SYSTEMS Abdomen: No abdominal pain, nausea, vomiting, diarrhea, or constipation. No bloating, early satiety, indigestion, or increased flatulence. Bladder: No dysuria, gross hematuria, urinary frequency, urinary urgency, or incontinence Breast: No breast lumps, nipple d/c, overlying skin changes, redness or skin retraction Allergies and current medication updated:Yes EXAM: BP 110/72 Ht 5' 3.583 (1.62m) Wt 210 lb (95.3kg) BMI 36.52 kg/(m2). GENERAL: pleasant, female in no apparent distress HEENT: Normocephalic, atraumatic, mucus membranes moist and no lesions NECK: Supple, full range of motion, no adenopathy and thyroid normal DERMATOLOGY: Normal, without lesions, non-icteric and non-hirsute BREAST: soft, non-tender, symmetric, no dominant mass, normal nipple-areolar complex, no lymphadenopathy and no nipple discharge ABDOMEN: soft, non-tender and no masses PELVIC: external genitalia normal, normal Bartholin's glands, urethra, [place]'s glands, no vulvar lesions, good vaginal support, physiologic discharge present, normal appearing perineal body and perianal region, cervix surgically absent BIMANUAL: no adnexal masses, non-tender and uterus surgically absent RECTOVAGINAL: deferred. NEURO: alert and oriented x3,exam grossly non-focal EXTREMITIES: normal ASSESSMENT/PLAN: 1) Health maintenance: Pap/HPV screening no longer needed Mammogram ordered Mammogram up to date Nutrition, exercise and routine health maintenance exams reviewed. Calcium/Vitamin D supplementation information provided. Colon cancer screening: colonoscopy ordered BMD: N/A 2) Follow up one year or sooner as needed 3) if still has any RLQ pain will consider pelvic ultrasound. Tanya Mays MD [facility] Progress note 01-13-2021 Note Date & Type Note Facility 01-13-2021 Note HNO ID: [id number] Author: Jennifer Kennedy Ma Service: ? Author Type: ? Type: Progress Notes Filed: 01/13/2021 1:48 PM Note Text: Econometrics Professor offered: Patient declines. [facility] Summary Purpose Family History No Family History Records FoundNo Family History Records Found Advance Directives No Advanced Directives Records FoundNo Advanced Directives Records Found Additional Source Comments INFORMATION SOURCE (unrecogn ized section and content) DATE CREATED AUTHOR AUTHOR'S ORGANIZ ATION 07/20/2021 [facility] FOR RECORDS PERTAINING TO PATIENTS WHO ARE OR HAVE BEEN ENROLLED IN A CHEMICAL DEPENDENCY/SUBSTANCEABUSE PROGRAM, SOME INFORMATION MAY BE OMITTED. This clinical summary was aggregated from multiple sources. Caution should be exercised in using it in the provision of clinical care. This summary normalizes information from multiple sources, and as a consequence, information in this document may materially change the coding, format and clinical context of patient data. In addition, data may be omitted in some cases. CLINICAL DECISIONS SHOULD BE BASED ON THE PRIMARY CLINICAL RECORDS. [facility]. provides no warranty or guarantee of the accuracy or completeness of information in this document.
[2023-06-30 15:22] LABS: Absolute Lymphocyte Count 1.11 X10^3/uL (0.83-4.51); Absolute Neutrophil Count 3.9 X10^3/uL (2.0-7.7); Basophil# 0.08 X10^3/uL; Basophil% 1.4 % (0-1); Eosinophil# 0.12 X10^3/uL; Eosinophils% 2.2 % (0-5); Hematocrit 46.2 % (37-47); Hemoglobin 14.4 g/dL (12.0-15.0); Lymphocyte # 1.11 X10^3/ul (0.83-4.51); Lymphocyte % 20.1 % (19-41); Mean Corp Hgb Conc 31.2 g/dL (32-36); Mean Platelet Vol. 9.8 fl (6.2-12.0); Monocyte% 5.4 % (0-10); NRBC Flagged by Analyzer 0 % (0-5); Neutrophil % 70.5 % (47-70); Platelet Count 210 K/mm3 (150-450); RBC Distribution Width CV 13.2 % (11.6-14.6); RBC Distribution Width SD 44.7 fl (35.1-43.9); Red Blood Count 4.97 M/mm3 (4.2-5.4); White Blood Count 5.5 K/mm3 (4.4-11.0)
[2023-06-30 16:02] LABS: ALB/GLOB Ratio 1.1 RATIO (0.9-2.4); AST(SGOT) 17 U/L (15-37); Alanine Aminotransfer ALT/SGPT 23 U/L (13-56); Albumin, Serum 3.7 g/dL (3.2-5.0); Alkaline Phosphatase 62 U/L (45-117); Anion Gap 4 (5-15); BUN 13 mg/dL (7-18); BUN/Creat Ratio 17.2 RATIO (10-20); Calcium,Total 9.3 mg/dL (8.5-10.1); Chloride 108 mmol/L (98-107); Cholesterol 279 mg/dL (200); Creatinine, Serum 0.76 mg/dL (0.55-1.02); EST Glomerular Filtration Rate 82 mL/min (>60); Est Glom Filt Rate - Afr Amer 99 mL/min (>60); Globulin 3.4 g/dL (2.2-4.2); Glucose 95 mg/dL (74-106); High Density Lipoprotein 71 mg/dL; Protein, Total 7.1 g/dL (6.4-8.2); Sodium Level 141 mmol/L (136-145); Thyroid Stim Hormone (TSH) 2.98 uIU/mL (0.358-3.74); Triglycerides 149 mg/dL; Very Low Density Lipoprotein 30 mg/dL (5-40)
[2023-07-05 01:06] LABS: Calprotectin, Stool 44 ug/g (0-120)
== END | disposition home or self-care (01) ==
LOC: BIMLAB 12:12
PROVIDERS: PCP Internal Medicine; Referring Provider Internal Medicine; Visit Provider Internal Medicine
DX: K58.9 Irritable bowel syndrome, unspecified (principal); E03.9 Hypothyroidism, unspecified
CPT/HCPCS: 36415; 80053; 80061; 83630; 83993; 84443; 85025

== ENCOUNTER → 2023-08-02 | Outpatient (CLI) | payer OTHER, SELFPAY ==
--- NOTE | 2023-08-02 10:54 | BD_ITS ---
STUDY: DUAL ENERGY X-RAY ABSORPTIOMETRY / DXA REASON FOR EXAM: Female, 63 years old. Post menopausal TECHNIQUE: Bone Mineral Density (BMD) measurements of lumbar spine and bilateral hips were obtained. COMPARISON: Comparison is made with prior study dated April 27, 2021. FINDINGS: Lumbar Spine (L1-L4): g/cm2 (0.806) / T-score (-2.2) / Z-score (-0.5) Findings are suggestive of osteopenia with a high fracture risk. Left Femur Total: g/cm2 (0.926) / T-score (-0.1) / Z-score (1.1) Left Femoral Neck: g/cm2 (0.706) / T-score (-1.3) / Z-score (0.2) Right Femur Total: g/cm2 (0.879) / T-score (-0.5) / Z-score (0.7) Right Femoral Neck: g/cm2 (0.682) / T-score (-1.5) / Z-score (0.0) The T-Scores on the most recent prior examination were: Lumbar Spine (L1-L4): There has been improvement of bone density since the previous examination. Left Femur Total: which represents an improvement of 2.9%. Right Femur Total: which represents an improvement of 1.2%. BD/Dexa Bone Density Study IMPRESSION: The patient is considered osteopenic as outlined below according to World Felipe Organization (WHO) criteria with a high fracture risk. There has been improvement of bone density since the previous examination. Reference Information: The T-score is the number of standard deviations above or below the standard which is normal for young adults at their peak bone mineral density. The World Health Organization (WHO) interprets the T-scores as follows: Above -1 Normal bone density Between -1 and -2.5 Osteopenia Equal to / or below -2.5 Osteoporosis As a practical clinical guideline, osteopenia may be graded as follows: Mild -1 through -1.5 Moderate -1.6 through -2.0 Severe -2.1 through -2.4 The Z-score is the number of standard deviations above or below age-matched controls. A Z-score of less than -1.5 would be considered abnormal. References: 1. NIH Osteoporosis and Related Bone Diseases www osteo.org 2. International Society for Clinical Densitometry www iscd.org 3. National Osteoporosis Foundation www nof.org Electronically Signed: Luis Sands MD at 13:43 EST ,
--- OUTSIDE RECORDS SUMMARY | 2023-08-02 13:44 | XMS RPT_ITS | CCD ---
Author Name Unknown Address [address] [place] [address] Organization [facility] Results Test Name Value Interpretation Reference Range Facil ity Progress note 05-14-2021 Note Date & Type Note Facility 05-14-2021 Note HNO ID: [id number] Author: Marie Gonzalez PA-C Service: ? Author Type: Physician Whizzer Operator Type: Progress Notes Filed: 05/17/2021 8:36 [...] ENDOSCOPY NAME: J Carlos Jenkins CLINIC NO.: [id number] DATE OF SERVICE: 05/14/2021 : 1960 REFERRING PHYSICIAN: Hayder Villalta MD J Carlos is a patient I am following for screening colonoscopy and personal history of colon polyps. Dr. Mendenhall performed lower endoscopy on 05/03/21 at [facility]. The patient was found to have: Impression: [...] results to the patient/family/caregiver. Marie Gonzalez PA-C [facility] Progress note 03-03-2021 Note Date & Type Note Facility 03-03-2021 Note HNO ID: [id number] Author: Marie Gonzalez PA-C Service: ? Author Type: Physician Whizzer Operator Type: Progress Notes Filed: 03/03/2021 11:50 [...] Laterality Date - COLONOSCOP W/ OR W/O [facility] SPEC 03/26/2012 Colonoscopy - COLONOSCOP W/ OR W/O [facility] SPEC 04/21/16 Colonoscopy (MAC) - PAST [...] facility-administered medications for this visit. ALLERGIES: Fioricet-Codeine [Jhrcmcjtmd-Ucgmkkgpuo-Lcu-Cod] and Sulfa (Sulfonamide Antibiotics) PERSONAL HISTORY: Social [...] stroke/TIA. Psychiatric: The (more content not included)... [facility] Progress note 01-13-2021 Note Date & Type Note Facility 01-13-2021 Note HNO ID: [id number] Author: Tanya Katz MD Service: ? Author Type: Physician Type: Progress Notes Filed: 01/13/2021 1:48 PM Note Text: Uma is a 60 year old who presents for an annual gynecologic exam without complaints. Went to [place] for one week recently with family. Intermittent RLQ pain- no associated symptoms. Postmenopausal: Yes since age HRT use: No. Last Pap: 09/17/2015 normal HPV: 02/27/2008 negative History of abnormal pap: Yes 1995 Last mammogram: 2020 normal [facility] History of abnormal mammogram: No Sexually active: [...] Laterality Date - COLONOSCOP W/ OR W/O [facility] SPEC 03/26/2012 Colonoscopy - COLONOSCOP W/ OR W/O [facility] SPEC 04/21/16 Colonoscopy (MAC) - PAST [...] external genitalia normal, normal Bartholin's glands, urethra, [place]'s glands, no vulvar lesions, good vaginal support, [...] will consider pelvic ultrasound. Tanya Mays MD [facility] Progress note 01-13-2021 Note Date & Type Note Facility 01-13-2021 Note HNO ID: [id number] Author: Jennifer Kennedy Ma Service: ? Author Type: ? Type: Progress Notes Filed: 01/13/2021 1:48 PM Note Text: Dough Catcher offered: Patient declines. [facility] Summary Purpose Family History No Family History Records FoundNo Family History Records Found Advance Directives No Advanced Directives Records FoundNo Advanced Directives Records Found Additional Source Comments INFORMATION SOURCE (unrecogn ized section and content) DATE CREATED AUTHOR AUTHOR'S ORGANIZ ATION 07/20/2021 [facility] FOR RECORDS PERTAINING TO PATIENTS WHO ARE [...] BE BASED ON THE PRIMARY CLINICAL RECORDS. [facility]. provides no warranty or guarantee of the accuracy or completeness of information in this document.
== END | disposition home or self-care (01) ==
LOC: OPBD 10:51
PROVIDERS: PCP Internal Medicine; Referring Provider Internal Medicine; Visit Provider Internal Medicine
DX: Z78.0 Asymptomatic menopausal state (principal)
CPT/HCPCS: 77080

== ENCOUNTER → 2024-01-16 | Outpatient (CLI) | payer MEDICARE, OTHER, SELFPAY ==
[2024-01-16 15:35] LABS: ALB/GLOB Ratio 1.2 RATIO (0.9-2.4); AST(SGOT) 22 U/L (15-37); Alanine Aminotransfer ALT/SGPT 33 U/L (13-56); Alkaline Phosphatase 71 U/L (45-117); Anion Gap 6 (5-15); BUN 13 mg/dL (7-18); BUN/Creat Ratio 15.6 RATIO (10-20); Calcium,Total 10.6 mg/dL (8.5-10.1); Chloride 103 mmol/L (98-107); Cholesterol 164 mg/dL (200); Creatinine, Serum 0.83 mg/dL (0.55-1.02); EST Glomerular Filtration Rate 73 mL/min (>60); Est Glom Filt Rate - Afr Amer 89 mL/min (>60); Globulin 3.2 g/dL (2.2-4.2); Glucose 91 mg/dL (74-106); High Density Lipoprotein 78 mg/dL; Protein, Total 7.2 g/dL (6.4-8.2); Sodium Level 139 mmol/L (136-145); Triglycerides 74 mg/dL; Very Low Density Lipoprotein 15 mg/dL (5-40)
== END | disposition home or self-care (01) ==
LOC: BIMLAB 13:33
PROVIDERS: PCP Internal Medicine; Referring Provider Internal Medicine; Visit Provider Internal Medicine
DX: E78.5 Hyperlipidemia, unspecified (principal)
CPT/HCPCS: 36415; 80053; 80061

== ENCOUNTER → 2024-01-29 | Outpatient (CLI) | payer MEDICARE, OTHER, SELFPAY ==
--- NOTE | 2024-01-29 12:37 | BI_ITS ---
MAMMOGRAPHY - BILATERAL SCREENING REASON FOR EXAM: Female, 64 years old. Routine annual screening examination. PERTINENT HISTORY: Aunt with breast cancer. TECHNIQUE: Digital bilateral breast paulette (3D mammographic acquisition) in the CC and MLO projections. 2-D mediolateral oblique (MLO) and craniocaudad (CC) views of both breasts were obtained. CAD: Full Field Digital Mammography with Computer Added Detection was performed. COMPARISON: Comparison is made with prior study May 12, 2022 and November 13, 2020. FINDINGS: Breast Composition: There are scattered areas of fibroglandular density. There are no dominant masses or suspicious calcifications. No other significant abnormalities are identified. There has been no significant change since the prior study. BI/SCRN MAMM (CAD)W/PAULETTE BILAT IMPRESSION: Stable bilateral screening mammogram. Yearly follow-up mammogram recommended. (A) ASSESSMENT CATEGORY: BIRADS Category 2: Benign. A letter regarding these results will be sent to the patient by the facility within 30 days. Approximately 10% of breast cancers are not detected by mammography. A normal mammogram should not delay biopsy of a clinically suspicious abnormality. [id number] Electronically Signed: Luis Sands MD at 13:20 EDT ,
== END | disposition home or self-care (01) ==
PROVIDERS: PCP Internal Medicine; Referring Provider Nurse Practitioner; Visit Provider Nurse Practitioner
DX: Z12.31 Encounter for screening mammogram for malignant neoplasm of breast (principal)
CPT/HCPCS: 77063; 77067

== ENCOUNTER → 2024-05-20 | Outpatient (CLI) | payer MEDICARE, OTHER, SELFPAY ==
[2024-05-20 15:47] LABS: Vitamin D,25 Hydroxy 31.9 ng/mL
[2024-05-20 15:55] LABS: ALB/GLOB Ratio 1.2 RATIO (0.9-2.4); AST(SGOT) 24 U/L (15-37); Alanine Aminotransfer ALT/SGPT 39 U/L (13-56); Albumin, Serum 3.8 g/dL (3.2-5.0); Alkaline Phosphatase 69 U/L (45-117); Anion Gap 3 (5-15); BUN 14 mg/dL (7-18); BUN/Creat Ratio 19.9 RATIO (10-20); Calcium,Total 9.2 mg/dL (8.5-10.1); Chloride 107 mmol/L (98-107); Cholesterol 264 mg/dL (200); EST Glomerular Filtration Rate 88 mL/min (>60); Est Glom Filt Rate - Afr Amer 107 mL/min (>60); Globulin 3.2 g/dL (2.2-4.2); Glucose 91 mg/dL (74-106); High Density Lipoprotein 77 mg/dL; Sodium Level 140 mmol/L (136-145); Triglycerides 108 mg/dL; Very Low Density Lipoprotein 22 mg/dL (5-40)
== END | disposition home or self-care (01) ==
LOC: BIMLAB 13:50
PROVIDERS: PCP Internal Medicine; Referring Provider Internal Medicine; Visit Provider Internal Medicine
DX: E78.2 Mixed hyperlipidemia (principal); M85.80 Other specified disorders of bone density and structure, unspecified site; E03.9 Hypothyroidism, unspecified
CPT/HCPCS: 36415; 80053; 80061; 82306; 84443

== ENCOUNTER → 2024-12-02 | Outpatient (CLI) | payer MEDICARE, OTHER, SELFPAY ==
[2024-12-02 13:10] LABS: ALB/GLOB Ratio 2.2 RATIO (0.9-2.4); AST(SGOT) 24 U/L (<=31); Alanine Aminotransfer ALT/SGPT 27 U/L (<=34); Albumin, Serum 4.3 g/dL (3.4-4.8); Alkaline Phosphatase 75 U/L (35-104); Anion Gap 9 (5-15); BUN 14 mg/dL (4-19); BUN/Creat Ratio 18.5 RATIO (10-20); Calcium,Total 9.9 mg/dL (7.6-11.0); Carbon Dioxide 28.8 mmol/L (21.0-32.0); Chloride 106 mmol/L (98-108); Creatinine, Serum 0.74 mg/dL (0.70-1.20); EST Glomerular Filtration Rate 90 (>60); Glucose 96 mg/dL (70-99); Potassium 4.1 mmol/L (3.3-5.1); Protein, Total 6.3 g/dL (5.9-8.4); Sodium Level 143 mmol/L (133-145); Total Bilirubin 0.65 mg/dL (0.00-1.30)
[2024-12-02 15:58] LABS: Cholesterol 192 mg/dL (<=200); High Density Lipoprotein 71 mg/dL; Low Density Lipoprotein Calc. 105 mg/dL; Triglycerides 83 mg/dL; Very Low Density Lipoprotein 17 mg/dL (5-40); cholesterol:hdl ratio screen 2.72
== END | disposition home or self-care (01) ==
LOC: BIMLAB 11:21
PROVIDERS: PCP Internal Medicine; Referring Provider Internal Medicine; Visit Provider Internal Medicine
DX: E78.2 Mixed hyperlipidemia (principal); E03.9 Hypothyroidism, unspecified
CPT/HCPCS: 36415; 80053; 80061; 84443

== ENCOUNTER → 2025-02-19 | Outpatient (CLI) | payer MEDICARE, OTHER, SELFPAY ==
--- NOTE | 2025-02-19 12:30 | BI_ITS ---
EXAM: SCRN MAMM (CAD)W/PAULETTE BILAT DATE: 02/19/2025 CLINICAL HISTORY: F, Age 65 y/o , SCREENING FOR BREAST CANCER Aunt with breast cancer. TECHNIQUE: SCRN MAMM (CAD)W/PAULETTE BILAT COMPARISON: Prior exam(s) dated prior study dated January 29, 2024.. FINDINGS: TISSUE DENSITY: There are scattered areas of fibroglandular density. Bilateral Breast Mammographic Findings: No significant masses, calcifications or other abnormalities are identified. No suspicious masses, areas of developing architectural distortion, or suspicious calcifications. There has been no significant interval change. BI/SCRN MAMM (CAD)W/PAULETTE BILAT IMPRESSION: Stable examination. OVERALL FINAL ASSESSMENT BI-RADS 1: NEGATIVE. RECOMMENDATION: Routine annual follow-up in 1 Year A letter with findings and recommendations will be mailed to the patient. Reading Location: [id number]
== END | disposition home or self-care (01) ==
LOC: OPBI 12:35
PROVIDERS: PCP Internal Medicine; Referring Provider Internal Medicine; Visit Provider Internal Medicine
DX: Z12.31 Encounter for screening mammogram for malignant neoplasm of breast (principal)
CPT/HCPCS: 77063; 77067